=== PATIENT | male | born 1960 | race Caucasian/White ===

== ENCOUNTER 2023-09-08 08:22 | Emergency (ER) | payer MEDICARE, MEDICAID ==
[~2023-09-08] VITALS: Ht 200.7 cm; Wt 111.4 kg
[2023-09-08 08:23] VITALS: TEMP 97.8
[2023-09-08] MEDS: LIDOcaine 1% (10mg/ml)w/preservative inj. 20ml MDV SQ ONE (10:08)
[2023-09-08] MEDS ORDERED: CEPH500C2 PO (10:55)
[2023-09-08] MEDS: cephalexin 250mg capsule PO ONE (11:42)
[2023-09-08 11:44] VITALS: BP 120/81; PULSE 82; RESP 16; O2SAT 94
== END 2023-09-08 11:46 | disposition home or self-care (01) ==
LOC: ER 08:23
DX: S81.811A Laceration without foreign body, right lower leg, initial encounter (principal); S00.83XA Contusion of other part of head, initial encounter; G89.29 Other chronic pain; M54.9 Dorsalgia, unspecified; Z98.890 Other specified postprocedural states; Z79.2 Long term (current) use of antibiotics; X58.XXXA Exposure to other specified factors, initial encounter; Y93.89 Activity, other specified; Y92.89 Other specified places as the place of occurrence of the external cause; Y99.8 Other external cause status
CPT/HCPCS: 12004; 73590; 99285; A6222; A6258; A6402; A6449; J7030; Z7610